=== PATIENT | male | born 1985 | race Native Hawaiian/Other Pacific Islander ===

== ENCOUNTER 2021-02-13 10:48 | Observation (INO) | payer OTHER ==
[~2021-02-13] VITALS: Ht 175.3 cm; Wt 160.8 kg
[2021-02-13 13:05] LABS: PLATELET COUNT 201 K/uL (142-355)
[2021-02-13 13:21] LABS: POTASSIUM 3.8 mmol/L (3.6-5.2); SODIUM 140 mmol/L (136-145)
[2021-02-13 13:24] LABS: PARTIAL THROMBOPLASTIN TIME 25.6 SECONDS (24.5-33.6)
[2021-02-13 14:00] VITALS: BP 166/99; TEMP 98.1; Ht 175.3 cm; Wt 160.8 kg
[2021-02-13 16:00] VITALS: BP 149/99; TEMP 97.7
[2021-02-13 20:00] VITALS: BP 172/84; TEMP 98.9
[2021-02-14 00:05] VITALS: BP 148/81; TEMP 97.8
[2021-02-14 04:00] VITALS: BP 129/60; TEMP 98.3
[2021-02-14 05:58] LABS: PLATELET COUNT 204 K/uL (142-355)
[2021-02-14 06:31] LABS: POTASSIUM 4.4 mmol/L (3.6-5.2)
[2021-02-14 08:00] VITALS: BP 170/96; TEMP 97.7
[2021-02-14 12:00] VITALS: BP 163/93; TEMP 97.7
== END 2021-02-14 15:20 | disposition home or self-care (01) ==
LOC: MED/SURG 10:48
PROVIDERS: ADMIT Family Medicine; ATTEND Family Medicine
DX: R07.9 Chest pain, unspecified (principal); I10 Essential (primary) hypertension; I20.8 Other forms of angina pectoris; E66.01 Morbid (severe) obesity due to excess calories
CPT/HCPCS: 36415; 80053; 80061; 82550; 83735; 83880; 84100; 84443; 84484; 85027; 85610; 85730; 87635; 93005; 99220; G0378; G0379; J1650; U0003